=== PATIENT | male | born 1945 | race Caucasian/White ===

== ENCOUNTER 2017-06-26 07:14 | Day surgery (SDC) | payer MEDICARE ==
[~2017-06-26] VITALS: Ht 188 cm; Wt 120.3 kg
[~2017-06-26 07:14] MED LIST: ATOR-2 PO; CARV12.52 PO; CLOM50TA2 PO; CLOP75TA PO; LISI-170 PO; METF500T4 PO; RANO500T2 PO; VITAMIN D PO
[2017-06-26] MEDS ORDERED: LACTATED RINGERS 1,000 ML IV SCH ×2 (07:46→07:49)
[2017-06-26 07:47] VITALS: BP 149/77
[2017-06-26] MEDS ORDERED: FENTANYL PF 100 MCG/2ML ONE ×2 (09:14)
[2017-06-26] MEDS ORDERED: CARVEDILOL 12.5 MG TABLET PO ONE (09:19)
[2017-06-26] MEDS ORDERED: MIDAZOLAM 1 MG/ML, 2ML ONE (09:55)
[2017-06-26] MEDS ORDERED: LIDOCAINE GEL 2%, 5ML ONE (09:56)
[2017-06-26] MEDS ORDERED: SUCCINYLCHOLINE 20 MG/ML, 10ML ONE (10:20)
[2017-06-26] MEDS ORDERED: PROPOFOL 10 MG/ML, 20ML ONE (10:20)
[2017-06-26] MEDS ORDERED: ROCURONIUM 10 MG/ML ONE (10:20)
[2017-06-26] MEDS ORDERED: DEXAMETHASONE 4 MG/ML, 1ML ONE (10:20)
[2017-06-26] MEDS ORDERED: CEFAZOLIN 1,000 MG ONE ×3 (10:30)
[2017-06-26] MEDS ORDERED: LABETALOL 5MG/ML, 20ML IV PRN (10:30)
[2017-06-26] MEDS ORDERED: HYDROcodone/APAP 7.5-325MG/15ML UDC PO PRN (10:30)
[2017-06-26] MEDS ORDERED: GENTAMICIN 80 MG/2 ML ONE ×2 (10:30)
[2017-06-26] MEDS ORDERED: hydrALAzine 20 MG/ML, 1ML IV PRN (10:30)
[2017-06-26] MEDS ORDERED: ONDANSETRON 2MG/ML, 2ML IVPush PRN (10:30)
[2017-06-26] MEDS ORDERED: HYDROmorphone 1 MG/ML, 1ML IV PRN (10:30)
[2017-06-26] MEDS ORDERED: PROMETHAZINE 25 MG/ML, 1ML IV PRN (10:30)
[2017-06-26] MEDS ORDERED: FENTANYL PF 100 MCG/2ML IV PRN (10:30)
[2017-06-26] MEDS ORDERED: OXYcodone 5 MG/5 ML ORAL.SOL UDC PO PRN (10:30)
[2017-06-26] MEDS ORDERED: HYDROmorphone 1 MG/ML, 1ML ONE (11:14)
[2017-06-26] MEDS ORDERED: OPIUM/BELLADONNA SUPP.RECT 16.2-60 MG ONE (11:33)
[2017-06-26] MEDS ORDERED: ONDANSETRON 2MG/ML, 2ML ONE (11:38)
== END 2017-06-26 14:38 ==
LOC: OUT 07:14
PROVIDERS: ATTEND Urology
DX: N21.0 Calculus in bladder (principal); N39.498 Other specified urinary incontinence; N39.0 Urinary tract infection, site not specified
CPT/HCPCS: 52317; 52630; 82962; 88305; 93005; C1769; J0330; J0690; J1100; J1170; J1580; J2250; J2405; J2704; J3010; J7120